=== PATIENT | male | born 1980 | race African-American/Black ===

== ENCOUNTER 2019-01-06 18:38 | Emergency (ER) | payer OTHER ==
[~2019-01-06] VITALS: Ht 167.6 cm; Wt 92.8 kg
[2019-01-06] MEDS ORDERED: CLONIDINE HCL 0.1 MG TAB PO ONE (19:00)
[2019-01-06] MEDS ORDERED: HYDROCODONE/APAP 5MG-325MG TAB PO ONE (19:00)
[2019-01-06] MEDS ORDERED: CLONIDINE HCL 0.1 MG TAB ONE (20:10)
[2019-01-06] MEDS ORDERED: CLONIDINE HCL 0.2 MG TAB PO ONE (20:15)
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
[2019-01-06 20:46] VITALS: BP 181/107
--- NOTE | 2019-01-06 21:40 | NUR ---
Dr Dhaliwal aware of BP of 181/107, pt ok for discharge
== END 2019-01-06 21:38 | disposition home or self-care (01) ==
LOC: FSED 18:38
DX: M54.2 Cervicalgia (principal); R51 Headache; M54.6 Pain in thoracic spine; M54.5 Low back pain; S16.1XXA Strain of muscle, fascia and tendon at neck level, initial encounter; S23.3XXA Sprain of ligaments of thoracic spine, initial encounter; S39.012A Strain of muscle, fascia and tendon of lower back, initial encounter; V43.52XA Car driver injured in collision with other type car in traffic accident, initial encounter; Y92.488 Other paved roadways as the place of occurrence of the external cause; I10 Essential (primary) hypertension
CPT/HCPCS: 72040; 72070; 72100; 99283